=== PATIENT | female | born 1985 | race Caucasian/White ===

== ENCOUNTER 2016-11-05 09:42 | Outpatient (CLI) | payer BC ==
[~2016-11-05] VITALS: Ht 160 cm; Wt 110.9 kg
[~2016-11-05 09:42] MED LIST: BIRTH CONTROL PILLS; FLEXERIL 1010 MG/TAB PO; NO HOME MEDICATIONS; NORCO 325 MG-51 TAB PO; PERCOCET 325 MG1 TA2 PO; PRENATAL1 TA1 PO; PROMETHAZINE12.5 M5 PO; ZOFRAN ODT4 MG PO
[2016-11-05] MEDS ORDERED: SYNTHROID0.1 MG/TAB PO (10:00)
[2016-11-05] MEDS ORDERED: PRENATAL MVI (10:00)
[2016-11-05 10:45] VITALS: BP 131/62; PULSE 93
[2016-11-05 11:25] LABS: PH 6 (5-8); SQUAMOUS EPITHELIAL 0-2 /hpf; URINE APPEARANCE Clear; URINE BACTERIA Rare /hpf; URINE BILIRUBIN Negative (NEGATIVE); URINE BLOOD 2+ (NEGATIVE); URINE COLOR Yellow; URINE GLUCOSE Negative (NEGATIVE); URINE KETONE Negative (NEGATIVE); URINE RBC 0-2 /hpf; URINE UROBILINOGEN Negative (NEGATIVE); URINE WBC 0-2 /hpf
[2016-11-05 11:38] VITALS: BP 130/63; PULSE 86
== END 2016-11-05 11:45 | disposition home or self-care (01) ==
LOC: LDRO 09:42 → LDR 09:45 → LDRO 11:45
PROVIDERS: Obstetrics & Gynecology
DX: O47.02 False labor before 37 completed weeks of gestation, second trimester (principal); Z3A.26 26 weeks gestation of pregnancy
CPT/HCPCS: OP

== ENCOUNTER 2016-12-23 07:37 | Outpatient (CLI) | payer BC ==
[2016-12-23] VITALS (8 sets, daily range): BP systolic 116–134; BP diastolic 55–78; PULSE 83–98; TEMP 98.2
[~2016-12-23] VITALS: Ht 160 cm; Wt 115.5 kg
[~2016-12-23 07:37] MED LIST changes: +PRENATAL MVI; +SYNTHROID0.1 MG/TAB PO
[2016-12-23 08:33] LABS: ADJUSTED CALCIUM 9.3 mg/dL (8.4-10.2); ALBUMIN 3.3 gm/dL (3.5-5.0); BILIRUBIN,TOTAL 0.5 mg/dL (0.0-1.0); CALCIUM 8.7 mg/dL (8.4-10.2); CREATININE, serum 0.54 mg/dL (0.52-1.25); POTASSIUM 3.7 mmol/L (3.4-5.0); TOTAL PROTEIN 6.3 gm/dL (6.4-8.2)
[2016-12-23 09:04] LABS: BASO % 0.2 % (0.0-2.0); EOS # 0.1 (0.0-0.7); EOS % 1.3 % (0-4.0); GRAN # 7.6 (1.4-6.5); GRAN % 72.7 % (42.2-75.2); HEMATOCRIT 40.7 % (37.0-47.0); HEMOGLOBIN 13.7 g/dl (12.5-16.0); LYMPH # 1.7 (1.2-3.4); LYMPH % 16.4 % (20.0-51.0); MEAN CELL VOLUME 83 fl (80.0-100.0); MEAN CORPUSCULAR HEMOGLOBIN 28 pg (27.0-31.0); MEAN CORPUSCULAR HGB CONC 34 g/dl (33.0-37.0); MEAN PLATELET VOLUME 11.8 fl (7.4-10.4); MONO # 0.9 (0.1-0.6); MONO % 8.7 % (1.7-9.3); PLATELET COUNT 221 K/mm3 (130-400); RED BLOOD COUNT 4.91 M/mm3 (4.10-5.30); REDCELL DISTRIBUTION WIDTH-CV 13.4 % (11.5-14.5); WHITE BLOOD COUNT 10.4 K/mm3 (4.8-10.8)
[2016-12-23 09:08] LABS: PH 7 (5-8); URINE APPEARANCE Hazy; URINE BACTERIA Rare /hpf; URINE BILIRUBIN Negative (NEGATIVE); URINE BLOOD Negative (NEGATIVE); URINE COLOR Yellow; URINE GLUCOSE Negative (NEGATIVE); URINE KETONE Negative (NEGATIVE); URINE RBC 0-2 /hpf; URINE UROBILINOGEN Negative (NEGATIVE)
[2016-12-23] MEDS ORDERED: TYLENOL 500MG500 MG PO (09:14)
== END 2016-12-23 09:50 | disposition home or self-care (01) ==
LOC: LDRO 07:37
PROVIDERS: Student in an Organized Health Care Education/Training Program
DX: O26.893 Other specified pregnancy related conditions, third trimester (principal); R03.0 Elevated blood-pressure reading, without diagnosis of hypertension; Z3A.33 33 weeks gestation of pregnancy

== ENCOUNTER 2017-01-27 06:33 | Inpatient (IN) | payer BC ==
[~2017-01-27] VITALS: Ht 162.6 cm; Wt 119.5 kg
[2017-01-27] VITALS (50 sets, daily range): BP systolic 110–182; BP diastolic 54–100; PULSE 86–130; TEMP 97.7–98
[~2017-01-27 06:33] MED LIST changes: +TYLENOL 500MG500 MG PO
[2017-01-27] MEDS ORDERED: PEPCID 20MG TAB20 MG PO (07:08)
[2017-01-27 08:11] LABS: BASO % 0.3 % (0.0-2.0); EOS # 0.2 (0.0-0.7); EOS % 1.6 % (0-4.0); GRAN # 7.5 (1.4-6.5); GRAN % 71.6 % (42.2-75.2); HEMATOCRIT 42.7 % (37.0-47.0); HEMOGLOBIN 14.5 g/dl (12.5-16.0); LYMPH # 1.9 (1.2-3.4); LYMPH % 17.7 % (20.0-51.0); MEAN CELL VOLUME 82 fl (80.0-100.0); MEAN CORPUSCULAR HEMOGLOBIN 28 pg (27.0-31.0); MEAN CORPUSCULAR HGB CONC 34 g/dl (33.0-37.0); MEAN PLATELET VOLUME 12.4 fl (7.4-10.4); MONO # 0.9 (0.1-0.6); MONO % 8.2 % (1.7-9.3); PLATELET COUNT 237 K/mm3 (130-400); RED BLOOD COUNT 5.18 M/mm3 (4.10-5.30); REDCELL DISTRIBUTION WIDTH-CV 14.2 % (11.5-14.5); WHITE BLOOD COUNT 10.5 K/mm3 (4.8-10.8)
[2017-01-27 08:20] LABS: ADJUSTED CALCIUM 9.5 mg/dL (8.4-10.2); ALBUMIN 3.4 gm/dL (3.5-5.0); BILIRUBIN,TOTAL 0.4 mg/dL (0.0-1.0); CREATININE, serum 0.61 mg/dL (0.52-1.25); POTASSIUM 3.5 mmol/L (3.4-5.0); TOTAL PROTEIN 6.4 gm/dL (6.4-8.2)
[2017-01-27 08:25] LABS: PH 6 (5-8); URINE APPEARANCE Hazy; URINE BACTERIA None Seen /hpf; URINE BILIRUBIN Negative (NEGATIVE); URINE BLOOD Negative (NEGATIVE); URINE COLOR Yellow; URINE GLUCOSE Negative (NEGATIVE); URINE KETONE Negative (NEGATIVE); URINE RBC 0-2 /hpf; URINE UROBILINOGEN Negative (NEGATIVE)
[2017-01-28 00:50] VITALS: BP 146/80; PULSE 97; TEMP 97.9
[2017-01-28 05:50] VITALS: BP 141/78; PULSE 92; TEMP 98.1
[2017-01-28 07:00] VITALS: BP 128/60; PULSE 83; TEMP 97.9
[2017-01-28 07:55] LABS: HEMATOCRIT 38.6 % (37.0-47.0); HEMOGLOBIN 13.1 g/dl (12.5-16.0)
[2017-01-28] MEDS ORDERED: IBU600 MG PO (10:01)
[2017-01-28 19:45] VITALS: BP 140/84; PULSE 80; TEMP 98.3
[2017-01-29 05:00] VITALS: BP 126/80; PULSE 78; TEMP 98
[2017-01-29 08:20] VITALS: BP 138/76; PULSE 101; TEMP 97.5
== END 2017-01-29 10:35 | disposition home or self-care (01) | DRG 775 ==
LOC: LDR 06:33 → OB 08:45
PROVIDERS: Obstetrics & Gynecology
PROC: 10E0XZZ Delivery of Products of Conception, External Approach (ICD-10-PCS; principal; 2017-01-27)
PROC: 0KQM0ZZ Repair Perineum Muscle, Open Approach (ICD-10-PCS; 2017-01-27)
PROC: 3E033VJ Introduction of Other Hormone into Peripheral Vein, Percutaneous Approach (ICD-10-PCS; 2017-01-27)
DX: O13.3 Gestational [pregnancy-induced] hypertension without significant proteinuria, third trimester (principal); O99.284 Endocrine, nutritional and metabolic diseases complicating childbirth; E03.9 Hypothyroidism, unspecified; O70.1 Second degree perineal laceration during delivery; Z3A.38 38 weeks gestation of pregnancy; Z37.0 Single live birth
CPT/HCPCS: J2590; J7120

== ENCOUNTER 2018-08-19 06:43 | Emergency (ER) | payer BC ==
[~2018-08-19] VITALS: Ht 160 cm; Wt 97.7 kg
[~2018-08-19 06:43] MED LIST changes: +IBU600 MG PO; +PEPCID 20MG TAB20 MG PO; +ZOFRAN 4MG T4 MG/TAB PO
[2018-08-19 06:47] VITALS: TEMP 99.7
[2018-08-19 07:12] LABS: BASO % 0.3 % (0.0-2.0); EOS % 0.5 % (0-4.0); GRAN # 6.3 (1.4-6.5); GRAN % 81.9 % (42.2-75.2); HEMATOCRIT 45.3 % (37.0-47.0); HEMOGLOBIN 14.9 g/dl (12.5-16.0); LYMPH # 0.8 (1.2-3.4); LYMPH % 9.7 % (20.0-51.0); MEAN CELL VOLUME 82 fl (80.0-100.0); MEAN CORPUSCULAR HEMOGLOBIN 27 pg (27.0-31.0); MEAN CORPUSCULAR HGB CONC 33 g/dl (33.0-37.0); MONO # 0.6 (0.1-0.6); MONO % 7.3 % (1.7-9.3); PLATELET COUNT 230 K/mm3 (130-400); RED BLOOD COUNT 5.54 M/mm3 (4.10-5.30)
[2018-08-19 07:33] LABS: ALBUMIN 4.2 gm/dL (3.5-5.0); BILIRUBIN,TOTAL 0.5 mg/dL (0.0-1.0); CALCIUM 9.3 mg/dL (8.4-10.2); CREATININE, serum 0.87 mg/dL (0.52-1.25); POTASSIUM 3.9 mmol/L (3.4-5.0); TOTAL PROTEIN 7.5 gm/dL (6.4-8.2)
[2018-08-19] MEDS ORDERED: MAGCITRATE PO ×2 (09:08)
[2018-08-19 09:15] LABS: COLLECTION METHOD CLEAN CATCH
[2018-08-19 09:27] LABS: MUCOUS Present /lpf; PH 6 (5-8); URINE APPEARANCE Clear; URINE BACTERIA None Seen /hpf; URINE BILIRUBIN Negative (NEGATIVE); URINE BLOOD 3+ (NEGATIVE); URINE COLOR Yellow; URINE GLUCOSE Negative (NEGATIVE); URINE KETONE Negative (NEGATIVE); URINE LEUKOCYTE ESTERASE Negative (NEGATIVE); URINE NITRATE Negative (NEGATIVE); URINE PROTEIN(semi-quant) Negative (NEGATIVE); URINE RBC 0-2 /hpf; URINE UROBILINOGEN Negative (NEGATIVE)
[2018-08-19 09:40] VITALS: BP 127/77; PULSE 85
== END 2018-08-19 09:35 | disposition home or self-care (01) ==
LOC: COL.ER 06:43
PROVIDERS: Emergency Medicine
DX: R10.31 Right lower quadrant pain (principal); R91.1 Solitary pulmonary nodule; Z90.49 Acquired absence of other specified parts of digestive tract
CPT/HCPCS: J2550; J3010; J7030; Q9967

== ENCOUNTER 2019-01-08 20:49 | Emergency (ER) | payer BC ==
[~2019-01-08] VITALS: Ht 160 cm; Wt 103.6 kg
[~2019-01-08 20:49] MED LIST changes: +MAGCITRATE PO
[2019-01-08 21:14] VITALS: TEMP 100.2
[2019-01-08] MEDS ORDERED: ZYRTEC 10MG10 MG PO (21:50)
[2019-01-08 22:19] LABS: BASO % 0.3 % (0.0-2.0); EOS % 0.5 % (0-4.0); GRAN # 3.6 (1.4-6.5); GRAN % 58.5 % (42.2-75.2); HEMATOCRIT 43.6 % (37.0-47.0); HEMOGLOBIN 14.1 g/dl (12.5-16.0); LYMPH # 1.5 (1.2-3.4); MEAN CELL VOLUME 83 fl (80.0-100.0); MEAN CORPUSCULAR HEMOGLOBIN 27 pg (27.0-31.0); MEAN CORPUSCULAR HGB CONC 32 g/dl (33.0-37.0); MEAN PLATELET VOLUME 11.2 fl (7.4-10.4); MONO # 0.9 (0.1-0.6); MONO % 15.4 % (1.7-9.3); PLATELET COUNT 199 K/mm3 (130-400); RED BLOOD COUNT 5.28 M/mm3 (4.10-5.30); REDCELL DISTRIBUTION WIDTH-CV 13.6 % (11.5-14.5)
[2019-01-08 22:32] LABS: ALBUMIN 3.9 gm/dL (3.5-5.0); BILIRUBIN,TOTAL 0.3 mg/dL (0.0-1.0); C-REACTIVE PROTEIN 2.7 mg/dL (0.0-0.9); CALCIUM 8.5 mg/dL (8.4-10.2); CREATININE, serum 0.75 (0.52-1.25); POTASSIUM 3.8 mmol/L (3.4-5.0); TOTAL PROTEIN 7.2 gm/dL (6.4-8.2)
[2019-01-08 22:34] VITALS: BP 134/82
[2019-01-08] MEDS ORDERED: ANTIVERT 25MG25 MG PO (22:59)
[2019-01-08 23:24] VITALS: PULSE 80
== END 2019-01-08 23:24 | disposition home or self-care (01) ==
LOC: COL.ER 20:49
PROVIDERS: Emergency Medicine
DX: J32.9 Chronic sinusitis, unspecified (principal); R42 Dizziness and giddiness; E03.9 Hypothyroidism, unspecified; R00.2 Palpitations
CPT/HCPCS: J2060; J2405; J7030

== ENCOUNTER 2020-07-23 13:21 | Emergency (ER) | payer BC ==
[~2020-07-23] VITALS: Ht 162.6 cm; Wt 111.4 kg
[~2020-07-23 13:21] MED LIST changes: +ANTIVERT 25MG25 MG PO; +ZYRTEC 10MG10 MG PO
[2020-07-23 13:31] VITALS: TEMP 98.7
[2020-07-23] MEDS ORDERED: FLEXERIL 1010 MG/TAB PO (15:41)
[2020-07-23 15:52] VITALS: BP 115/75; PULSE 70
== END 2020-07-23 15:50 | disposition home or self-care (01) ==
LOC: COL.ER 13:21
DX: M62.830 Muscle spasm of back (principal); Z90.49 Acquired absence of other specified parts of digestive tract; Z87.891 Personal history of nicotine dependence; Z86.16 Personal history of COVID-19; Z88.0 Allergy status to penicillin; Z88.5 Allergy status to narcotic agent; Z88.6 Allergy status to analgesic agent
CPT/HCPCS: J1885; J2360

== ENCOUNTER 2021-11-12 14:34 | Emergency (ER) | payer BC ==
[~2021-11-12] VITALS: Ht 162.6 cm; Wt 113.6 kg
[2021-11-12 14:49] VITALS: TEMP 97.7
[2021-11-12 15:02] LABS: COLLECTION METHOD CLEAN CATCH
[2021-11-12 15:08] LABS: PH 6 (5-8); SQUAMOUS EPITHELIAL None Seen /hpf (0-10); URINE APPEARANCE Clear (CLEAR/HAZY); URINE BACTERIA None Seen /hpf (NONE SEEN); URINE BILIRUBIN Negative (NEGATIVE); URINE BLOOD 3+ (NEGATIVE); URINE COLOR Straw (YELLOW); URINE GLUCOSE Negative (NEGATIVE); URINE KETONE Negative (NEGATIVE); URINE LEUKOCYTE ESTERASE Negative (NEGATIVE); URINE NITRATE Negative (NEGATIVE); URINE PROTEIN(semi-quant) Negative (NEGATIVE); URINE RBC 0-2 /hpf (0-2); URINE UROBILINOGEN Negative (NEGATIVE)
[2021-11-12 15:43] LABS: BASO # 0.1 K/mm3 (0.0-0.2); BASO % 0.7 % (0.0-2.0); EOS # 0.2 K/mm3 (0.0-0.7); EOS % 2.6 % (0.0-4.0); GRAN # 4.3 K/mm3 (1.4-6.5); HEMATOCRIT 40.4 % (37.0-47.0); HEMOGLOBIN 13.2 g/dl (12.5-16.0); LYMPH # 2.6 K/mm3 (1.2-3.4); LYMPH % 34.1 % (20.0-51.0); MEAN CELL VOLUME 80 fl (80.0-100.0); MEAN CORPUSCULAR HEMOGLOBIN 26 pg (27-31); MEAN CORPUSCULAR HGB CONC 33 g/dl (33.0-37.0); MEAN PLATELET VOLUME 10.7 fl (7.4-10.4); MONO # 0.5 K/mm3 (0.1-0.6); MONO % 6.3 % (1.7-9.3); PLATELET COUNT 272 K/mm3 (130-400); RED BLOOD COUNT 5.07 M/mm3 (4.10-5.30); REDCELL DISTRIBUTION WIDTH-CV 13.7 % (11.5-14.5)
[2021-11-12 16:01] LABS: ALBUMIN 3.7 gm/dL (3.5-5.0); BILIRUBIN,TOTAL 0.2 mg/dL (0.2-1.2); CALCIUM 8.5 mg/dL (8.4-10.2); CREATININE, serum 0.92 mg/dL (0.57-1.11); POTASSIUM 3.8 mmol/L (3.5-4.5); TOTAL PROTEIN 6.7 gm/dL (6.2-8.1)
[2021-11-12 16:16] VITALS: BP 151/95; PULSE 95
== END 2021-11-12 16:16 | disposition home or self-care (01) ==
LOC: COL.ER 14:34
PROVIDERS: Emergency Medicine; Personal Emergency Response Attendant
DX: N93.9 Abnormal uterine and vaginal bleeding, unspecified (principal); Z32.02 Encounter for pregnancy test, result negative